=== PATIENT | male | born 1955 | race Caucasian/White ===

== ENCOUNTER 2016-05-13 17:09 | Emergency (ER) | payer OTHER ==
[~2016-05-13] VITALS: Wt 80.0 kg
--- NOTE | 2016-05-14 00:09 | RADRPT ---
PROCEDURE: XR Knee. CLINICAL INDICATION: Left knee pain TECHNIQUE: Three views of the left knee are available for review. COMPARISON: None available FINDINGS: There is no acute fracture or dislocation. There is minimal medial compartment joint space narrowin g. Minimal tricompartmental osseous spurring is also present. No significant joint effusion is pre sent. Minimal atherosclerotic vascular calcifications are present. The soft tissues are otherwise unremarkable. RPTAT: ZIsma IMPRESSION: 1. No acute bony abnormality. 2. Minimal degenerative changes within the knee. .Chloé Cantu MD, MD Date Time Electronically viewed and signed by .Chloé Cantu MD, MD on 05/14/2016 00:08 .T/
--- NOTE | 2016-05-14 00:10 | RADRPT ---
PROCEDURE: XR Ankle. CLINICAL INDICATION: Trauma TECHNIQUE: 3 views of the right ankle were performed. COMPARISON: None. FINDINGS: There is a minimally displaced transverse fracture of the medial malleolus at the level of the ankle mortise. There is minimal osseous spurring within the tibiotalar joint. The ankle mortise is othe rwise intact. There is soft tissue swelling over the medial malleolus. A small plantar calcaneal braxton l spur is present. There is no significant joint effusion. RPTAT: ZZ IMPRESSION: Minimally displaced transverse fracture of the medial malleolus at the level of the ankle mortise. .Chloé Cantu MD, MD Date Time Electronically viewed and signed by .Chloé Cantu MD, on 05/14/2016 00:10 .T/
--- NOTE | 2016-05-14 00:11 | RADRPT ---
PROCEDURE: XR Left Ankle. CLINICAL INDICATION: Trauma TECHNIQUE: Three views of the left ankle were performed. COMPARISON: None. FINDINGS: There is no acute fracture or dislocation. There is minimal osseous spurring within the tibiotalar joint. Ankle mortise is otherwise intact. There is no joint effusion. There is a small plantar ca lcaneal heel spur. Soft tissues are unremarkable. RPTAT: ZZ IMPRESSION: No acute bony abnormality. .Chloé Cantu MD, MD Date Time Electronically viewed and signed by .Chloé Cantu MD, MD on 05/14/2016 00:11 .T/
[2016-05-14] MEDS ORDERED: HYDR-906 PO (00:24)
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
[2016-05-14 01:02] VITALS: BP 134/78; PULSE 63; RESP 18
== END 2016-05-14 01:04 | disposition home or self-care (01) ==
LOC: E/R 17:09
DX: S80.02XA Contusion of left knee, initial encounter (principal); S93.401A Sprain of unspecified ligament of right ankle, initial encounter; R40.2142 Coma scale, eyes open, spontaneous, at arrival to emergency department; R40.2252 Coma scale, best verbal response, oriented, at arrival to emergency department; R40.2362 Coma scale, best motor response, obeys commands, at arrival to emergency department; V23.4XXA Motorcycle driver injured in collision with car, pick-up truck or van in traffic accident, initial encounter
CPT/HCPCS: 73562; 73610